=== PATIENT | male | born 1995 | race Caucasian/White ===

== ENCOUNTER 2020-11-02 08:55 | Emergency (ER) | payer BC ==
--- NOTE | 2020-11-02 09:33 | EDM.PDOC ---
ED HPI GENERAL MEDICAL PROBLEM - General Chief Complaint: General Stated Complaint: ? dehydration Time Seen by Provider: 11/02/20 09:15 Source of Information: Reports: Patient History Limitations: Reports: No Limitations - History of Present Illness INITIAL COMMENTS - FREE TEXT/NARRATIVE: Patient is presented to the Ed by his significant other with concern for possible heat stroke or seizure last night. 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 he was feeling ok, had some chips and was near the end of the shift and according to co workers became altered. He was more somnolent, slight irritable. He denies remembering anything from working the line to when he was dropped off at home. according to the co workers, he " zoned out" and was irritable so they drove him home. Patient states that his usual seizure is a " check out with talking strange" and he does not remember the episodes. AFter he was dropped off last night he felt tired but otherwise well. He slept all night. Overslept his 5 am alarm to take his seizure meds but took them at 6:30. He went back to sleep. Later when he talked to his significant other, they decided to come in to check labs with concern for heat stroke last night or a seizure. Last saw his neurologist several months ago, levels were done and normal. Today he feels fine, is eating and drinking well, no fevers or illness, no trauma Onset: Sudden Onset Date: 11/01/20 Duration: Resolved Prior to Arrival - Related Data Allergies Allergy/AdvReac Type Severity Reaction Status Date / Time No Known Allergies Allergy Verified 11/02/20 09:14 Home Meds: Home Meds Felbamate 400 mg PO TID 11/02/20 [History] Phenytoin 300 mg PO DAILY 11/02/20 [History] lamoTRIgine 100 mg PO TID 11/02/20 [History] Past Medical History HEENT History: Reports: Impaired Vision Neurological History: Reports: Seizure - Past Surgical History HEENT Surgical History: Reports: Oral Surgery Social & Family History - Tobacco Use Tobacco Use Status *Q: Never Tobacco User - Alcohol Use Alcohol Use History: No Alcohol Use in Last Twelve Months: No - Recreational Drug Use Recreational Drug Use: No Drug Use in Last 12 Months: No ED ROS GENERAL - Review of Systems Review Of Systems: See Below Constitutional: Reports: Fatigue (last night, better now) HEENT: Reports: No Symptoms. Denies: Rhinitis, Throat Pain, Throat Swelling Respiratory: Reports: No Symptoms. Denies: Shortness of Breath, Wheezing Cardiovascular: Reports: No Symptoms. Denies: Chest Pain, Blood Pressure Problem Endocrine: Reports: No Symptoms. Denies: Fatigue GI/Abdominal: Reports: No Symptoms. Denies: Abdominal Pain, Nausea, Vomiting : Reports: No Symptoms. Denies: Pain, Urinary Retention Musculoskeletal: Reports: No Symptoms Skin: Reports: No Symptoms Neurological: Reports: No Symptoms. Denies: Difficulty Walking, Change in Speech, Gait Disturbance Psychiatric: Reports: No Symptoms Hematologic/Lymphatic: Reports: No Symptoms ED EXAM, GENERAL - Physical Exam Exam: See Below Exam Limited By: Other (struggles a bit with the history but able to provide it adequately, displays capacity) General Appearance: Alert, WD/WN, No Apparent Distress Eye Exam: Bilateral Eye: EOMI, Normal Inspection, Nystagmus (unsure of baseline, not rotary), PERRL Ear Exam: Bilateral Ear: Canal Normal, TM normal Nose: Normal Inspection, Normal Mucosa Throat/Mouth: Normal Inspection, Normal Lips, Normal Voice Head: Atraumatic, Normocephalic Neck: Supple, Non-Tender Respiratory/Chest: No Respiratory Distress, Lungs Clear, Normal Breath Sounds, No Accessory Muscle Use, Chest Non-Tender Cardiovascular: Normal Peripheral Pulses, Regular Rate, Rhythm GI/Abdominal: Normal Bowel Sounds, Soft, Non-Tender, No Abnormal Bruit Back Exam: Normal Inspection, Full Range of Motion. No: CVA Tenderness (L), CVA Tenderness (R) Extremities: Normal Inspection, Normal Range of Motion, Normal Capillary Refill Neurological: Alert, Oriented, CN II-XII Intact, Normal Cognition, Normal Gait (normal finger to nose with eyes closed, normal codey, normal heel to macias, negative pronator drift. normal strength in the lower extremities, normal exercise physiologist certified in the upper extremities), No Motor/Sensory Deficits Course - Vital Signs Last Recorded V/S: Last Vital Signs Temp 36.9 C 11/02/20 09:00 Pulse 93 11/02/20 09:00 Resp 16 11/02/20 09:00 BP 163/85 H 11/02/20 09:00 Pulse Ox 100 11/02/20 09:00 - Orders/Labs/Meds Orders: Active Orders 24 hr Category Date Time Status LEVETIRACETAM, S [REF] Stat Lab 11/02/20 09:37 Received PHENYTOIN [REF] Stat Lab 11/02/20 09:37 Received Labs: Laboratory Tests 11/02/20 11/02/20 11/02/20 Range/Units 09:30 09:37 09:37 WBC 8.1 (4.0-10.2) K/uL RBC 5.15 (4.33-5.41) M/uL Hgb 16.9 H (13.1-16.8) g/dL Hct 47.8 (39.0-49.0) % MCV 92.8 (84.0-98.0) fL MCH 32.8 (28.2-33.3) pg MCHC 35.4 (31.7-36.0) g/dL RDW 13.6 (11.2-14.1) % Plt Count 341 (150-350) K/uL Neut % (Auto) 56.5 (45.0-80.0) % Lymph % (Auto) 31.5 (10.0-50.0) % [place] % (Auto) 10.3 (2.0-14.0) % Eos % (Auto) 1.2 (0.0-5.0) % Baso % (Auto) 0.5 (0.0-2.0) % Neut # (Auto) 4.55 (1.40-7.00) K/uL Lymph # (Auto) 2.54 (0.50-3.50) K/uL O[place]o # (Auto) 0.83 (0.00-1.00) K/uL Eos # (Auto) 0.10 (0.00-0.50) K/uL Baso # (Auto) 0.04 (0.00-0.20) K/uL Sodium 141 (136-145) mmol/L Potassium 3.5 (3.5-5.1) mmol/L Chloride 103 (98-107) mmol/L Carbon Dioxide 30.3 (21.0-32.0) mmol/L Anion Gap 7.7 (7-15) meq/L BUN 7 (7-18) mg/dL Creatinine 0.88 (0.51-1.17) mg/dL Est Cr Clr Drug Dosing 131.34 mL/min Estimated GFR (MDRD) > 60 mL/min Glucose 110 H (70-99) mg/dL Calcium 8.7 (8.5-10.1) mg/dL Total Bilirubin 0.6 (0.2-1.0) mg/dL AST 19 (15-37) U/L ALT 42 (12-78) U/L Alkaline Phosphatase 139 H (46-116) IU/L Total Protein 8.2 (6.4-8.2) g/dL Albumin 4.6 (3.4-5.0) g/dL Specimen Type Urincc Urine Color Yellow Urine Appearance Clear Urine pH 8.5 (5.0-9.0) Ur Specific [place] 1.020 (1.005-1.030) Urine Protein 30 H (NEGATIVE) mg/dL Urine Glucose (UA) Negative (NEGATIVE) mg/dL Urine Ketones Negative (NEGATIVE) mg/dL Urine Occult Blood Negative (NEGATIVE) Urine Nitrite Negative (NEGATIVE) Urine Bilirubin Negative (NEGATIVE) Urine Urobilinogen 0.2 (0.2-1.0) E.U./dL Ur Leukocyte Esterase Negative (NEGATIVE) Urine RBC 0-5 /HPF Urine WBC 0-5 /HPF Ur Epithelial Cells Rare /LPF Urine Bacteria Rare (NONE TO FEW) /HPF - Re-Assessments/Exams Free Text/Narrative Re-Assessment/Exam: 11/02/20 09:59 will check labs, and send out a keppra and phenytoin level. Appears well today. 11/02/20 10:49 las and urine normal. Will follow up with neurology Departure - Departure Time of Disposition: 10:52 Disposition: Home, Self-Care 01 Clinical Impression: Seizures - Discharge Information *PRESCRIPTION DRUG MONITORING PROGRAM REVIEWED*: Not Applicable *COPY OF PRESCRIPTION DRUG MONITORING REPORT IN PATIENT CUATE: Not Applicable Instructions: Seizure, Adult, [id number] Referrals: Dolores Trivedi MD [Primary Care Provider] - Forms: ED Department Discharge Additional Instructions: Testing today did not reveal any abnormalities in labs. Try to keep on your sleep schedule, take your medications on time, and stay hydrated. Follow up with neurology for send out seizure medication levels Sepsis Event Note (ED) - Focused Exam Vital Signs: Vital Signs Temp Pulse Resp BP Pulse Ox 11/02/20 09:00 36.9 C 93 16 163/85 H 100 - My Orders Last 24 Hours: My Active Orders 11/02/20 09:37 LEVETIRACETAM, S [REF] Stat PHENYTOIN [REF] Stat - Assessment/Plan Last 24 Hours: My Active Orders 11/02/20 09:37 LEVETIRACETAM, S [REF] Stat PHENYTOIN [REF] Stat
[2020-11-02 10:02] LABS: ANION GAP 7.7 meq/L (7-15); CHLORIDE,CL 103 mmol/L (98-107); SODIUM,NA 141 mmol/L (136-145)
== END 2020-11-02 11:10 | disposition home or self-care (01) ==
LOC: LL.ED 08:55
DX: R56.9 Unspecified convulsions (principal)
CPT/HCPCS: 36415; 80053; 80177; 80185; 81001; 85025; 99284

== ENCOUNTER 2021-02-07 20:29 | Emergency (ER) | payer BC ==
[2021-02-07] MEDS ORDERED: Sodium Chloride 0.9% 10 ML Syringe FLUSH PRN (20:40)
[2021-02-07 21:01] LABS: BARBITURATE SCREEN,URINE NEGATIVE (NEGATIVE); BENZODIAZEPINES SCREEN,URINE NEGATIVE (NEGATIVE); EDDP,URINE SCREEN NEGATIVE (NEGATIVE); TCA SCREEN,URINE NEGATIVE (NEGATIVE); THC SCREEN,URINE 50 NG/ML NEGATIVE (NEGATIVE)
[2021-02-07 21:02] LABS: BUPRENORPHINE SCREEN,URINE NEGATIVE (NEGATIVE)
[2021-02-07 21:06] LABS: ANION GAP 9.9 meq/L (7-15); CHLORIDE,CL 103 mmol/L (98-107); SODIUM,NA 140 mmol/L (136-145)
--- NOTE | 2021-02-07 21:07 | EDM.PDOC ---
ED HPI GENERAL MEDICAL PROBLEM - General Chief Complaint: Neurological Problem Stated Complaint: post-ictal Time Seen by Provider: 02/07/21 20:45 Source of Information: Reports: Patient History Limitations: Reports: No Limitations - History of Present Illness Onset: Today Onset Date: 02/07/21 Duration: Hour(s):, Resolved Prior to Arrival Severity: Moderate Improves with: Reports: Other (time) Worsens with: Reports: None Associated Symptoms: Reports: Other (mild post ictal mental clouding) - Related Data Allergies Allergy/AdvReac Type Severity Reaction Status Date / Time No Known Allergies Allergy Verified 02/07/21 20:57 Home Meds: Home Meds Felbamate 400 mg PO TID 11/02/20 [History] Phenytoin 100 mg PO TID 11/02/20 [History] lamoTRIgine 400 mg PO DAILY@07 11/02/20 [History] lamoTRIgine [Lamotrigine] 400 mg PO DAILY@2300 02/07/21 [History] lamoTRIgine [Lamotrigine] 500 mg PO DAILY@15 02/07/21 [History] Past Medical History HEENT History: Reports: Impaired Vision Neurological History: Reports: Seizure - Past Surgical History HEENT Surgical History: Reports: Oral Surgery Social & Family History - Family History Family Medical History: No Pertinent Family History - Alcohol Use Alcohol Use History: Yes Alcohol Use in Last Twelve Months: Yes Alcohol Use Frequency: Socially Alcohol Use Comment: last use was prior to 01/27/21 breakthrough seizure - Recreational Drug Use Recreational Drug Use: No Drug Use in Last 12 Months: No - Sexual History Sexual History: Reports: Sexually Active, Single Partner ED ROS GENERAL - Review of Systems Review Of Systems: See Below Constitutional: Reports: No Symptoms HEENT: Reports: No Symptoms Respiratory: Reports: No Symptoms, Cough. Denies: Shortness of Breath, Wheezing, Hemoptysis Cardiovascular: Reports: No Symptoms Endocrine: Reports: No Symptoms GI/Abdominal: Reports: No Symptoms : Reports: No Symptoms Musculoskeletal: Reports: No Symptoms Skin: Reports: No Symptoms Neurological: Reports: No Symptoms Psychiatric: Reports: No Symptoms Hematologic/Lymphatic: Reports: No Symptoms Immunologic: Reports: No Symptoms - Physical Exam Exam: See Below Exam Limited By: No Limitations General Appearance: Alert, WD/WN, No Apparent Distress Eye Exam: Bilateral Eye: EOMI, Normal Inspection, PERRL Ears: Normal External Exam Nose: Normal Inspection Head Exam: Atraumatic, Normocephalic. No: Scalp Lacerations, Scalp Abrasions, Facial Abrasions, Facial Lacerations Neck: Normal Inspection, Supple, Full Range of Motion Respiratory/Chest: No Respiratory Distress, Lungs Clear, Normal Breath Sounds, No Accessory Muscle Use. No: Rales, Rhonchi, Wheezing, Stridor Cardiovascular: Normal Peripheral Pulses, Regular Rate, Rhythm, No Edema, No Gallop, No Murmur, No Rub GI/Abdominal: Soft, Non-Tender Neuro Exam (Abbreviated): Alert, Oriented, Normal Cognition, Normal Gait, No Motor/Sensory Deficits. No: Slow to Respond, Memory Loss Remote Events Back Exam: Full Range of Motion Extremities: Normal Inspection, Normal Range of Motion Psychiatric: Normal Affect, Normal Mood Skin Exam: Warm, Dry Course - Vital Signs Text/Narrative:: presented to the ED after breakthrough seizure while at work. He has had a viral URI recently and has been taking large amounts of OTC cold medicine. His seizure disorder is currently poorly controlled with his last breakthrough seizure on 01/27/21 (which he thinks was provoked by drinking multiple alcoholic beverages the night prior. He has been following with [facility] neurology (Dr. Trivedi). He takes his anti seizure medication regularly. He never misses doses. He sleeps at least 6-8 hours nightly. He has no other known triggers. Upon arrival to the ED he was seizure free. reports from bystander of approximately 10 minutes of seizure activity followed by mild post ictal phase. While in the ED he had complete mental clarity with no post ictal confusion noted and no seizure activity noted. physical exam was negative for acute findings. no tongue laceration, bodily injury or areas of ecchymosis noted. Labs ordered and all are WNL. pt remained asymptomatic and hemodynamically stable so was discharged home. Last Recorded V/S: Last Vital Signs Temp 99.0 F 02/07/21 20:30 Pulse 106 H 02/07/21 20:30 Resp 18 02/07/21 20:30 BP 163/91 H 02/07/21 20:30 Pulse Ox 99 02/07/21 20:30 - Orders/Labs/Meds Orders: Active Orders 24 hr Category Date Time Status Assess LOC and Orientation [RC] Q1H Care 02/07/21 20:39 Active Blood Glucose Check, Bedside [RC] ONETIME Care 02/07/21 20:35 Active Peripheral IV Care [RC] . DIRECTED Care 02/07/21 20:41 Active Up With Assistance [RC] ASDIRECTED Care 02/07/21 20:35 Active Vital Signs [RC] We@0800 Care 02/07/21 20:35 Active Nothing per Oral Now Diet [DIET] Diet 02/07/21 Dinner Active Sodium Chloride 0.9% [Saline Flush] Med 02/07/21 20:40 Active 10 ml FLUSH ASDIRECTED PRN Peripheral IV Insertion Adult [OM.PC] Stat Oth 02/07/21 20:40 Ordered Medication Orders Sodium Chloride (Sodium Chloride 0.9% 10 Ml Syringe) 10 ml FLUSH ASDIRECTED PRN PRN Reason: Keep Vein Open Labs: Laboratory Tests 02/07/21 02/07/21 02/07/21 Range/Units 20:40 20:45 20:45 WBC 11.8 H (4.0-10.2) K/uL RBC 4.62 (4.33-5.41) M/uL Hgb 15.1 (13.1-16.8) g/dL Hct 43.7 (39.0-49.0) % MCV 94.6 (84.0-98.0) fL MCH 32.7 (28.2-33.3) pg MCHC 34.6 (31.7-36.0) g/dL RDW 13.2 (11.2-14.1) % Plt Count 326 (150-350) K/uL MPV 8.70 (7.00-11.50) fL Sodium 140 (136-145) mmol/L Potassium 3.7 (3.5-5.1) mmol/L Chloride 103 (98-107) mmol/L Carbon Dioxide 27.1 (21.0-32.0) mmol/L Anion Gap 9.9 (7-15) meq/L BUN 12 (7-18) mg/dL Creatinine 0.82 (0.51-1.17) mg/dL Est Cr Clr Drug Dosing TNP Estimated GFR (MDRD) > 60 mL/min Glucose 135 H (70-99) mg/dL POC Glucose 120 H (70-99) mg/dL Lactic Acid (0.4-2.0) mmol/L Calcium 8.7 (8.5-10.1) mg/dL Magnesium 1.8 (1.8-2.4) mg/dL Total Bilirubin 0.2 (0.2-1.0) mg/dL AST 17 (15-37) U/L ALT 35 (12-78) U/L Alkaline Phosphatase 120 H (46-116) IU/L Creatine Kinase 93 (26-308) U/L Total Protein 7.6 (6.4-8.2) g/dL Albumin 3.9 (3.4-5.0) g/dL Urine Opiates Screen (NEGATIVE) Ur Buprenorphine Scrn (NEGATIVE) Ur Oxycodone Screen (NEGATIVE) Ur EDDP (Meth Metab) (NEGATIVE) Ur Barbiturates Screen (NEGATIVE) Ur Tricyclics Screen (NEGATIVE) Ur Amphetamine Screen (NEGATIVE) U Methamphetamines Scrn (NEGATIVE) Urine MDMA Screen (NEGATIVE) U Benzodiazepines Scrn (NEGATIVE) U Cocaine Metab Screen (NEGATIVE) U Marijuana (THC) Screen (NEGATIVE) Ethyl Alcohol 0.000 (0.000-0.080) g/dL 02/07/21 02/07/21 Range/Units 20:45 20:47 WBC (4.0-10.2) K/uL RBC (4.33-5.41) M/uL Hgb (13.1-16.8) g/dL Hct (39.0-49.0) % MCV (84.0-98.0) fL MCH (28.2-33.3) pg MCHC (31.7-36.0) g/dL RDW (11.2-14.1) % Plt Count (150-350) K/uL MPV (7.00-11.50) fL Sodium (136-145) mmol/L Potassium (3.5-5.1) mmol/L Chloride (98-107) mmol/L Carbon Dioxide (21.0-32.0) mmol/L Anion Gap (7-15) meq/L BUN (7-18) mg/dL Creatinine (0.51-1.17) mg/dL Est Cr Clr Drug Dosing Estimated GFR (MDRD) mL/min Glucose (70-99) mg/dL POC Glucose (70-99) mg/dL Lactic Acid 0.8 (0.4-2.0) mmol/L Calcium (8.5-10.1) mg/dL Magnesium (1.8-2.4) mg/dL Total Bilirubin (0.2-1.0) mg/dL AST (15-37) U/L ALT (12-78) U/L Alkaline Phosphatase (46-116) IU/L Creatine Kinase (26-308) U/L Total Protein (6.4-8.2) g/dL Albumin (3.4-5.0) g/dL Urine Opiates Screen Negative (NEGATIVE) Ur Buprenorphine Scrn Negative (NEGATIVE) Ur Oxycodone Screen Negative (NEGATIVE) Ur EDDP (Meth Metab) Negative (NEGATIVE) Ur Barbiturates Screen Negative (NEGATIVE) Ur Tricyclics Screen Negative (NEGATIVE) Ur Amphetamine Screen Negative (NEGATIVE) U Methamphetamines Scrn Negative (NEGATIVE) Urine MDMA Screen Negative (NEGATIVE) U Benzodiazepines Scrn Negative (NEGATIVE) U Cocaine Metab Screen Negative (NEGATIVE) U Marijuana (THC) Screen Negative (NEGATIVE) Ethyl Alcohol (0.000-0.080) g/dL Meds: Medications Generic Name Dose Route Start Last Admin Trade Name Freq PRN Reason Stop Dose Admin Sodium Chloride 10 ml 02/07/21 20:40 Sodium Chloride 0.9% 10 Ml Syringe FLUSH ASDIRECTED PRN Keep Vein Open Departure - Departure Time of Disposition: 21:42 Disposition: Home, Self-Care 01 Condition: Good Clinical Impression: Breakthrough seizure, Seizure disorder - Discharge Information *PRESCRIPTION DRUG MONITORING PROGRAM REVIEWED*: Not Applicable *COPY OF PRESCRIPTION DRUG MONITORING REPORT IN PATIENT CUATE: Not Applicable Instructions: Seizure, Adult, [id number] Referrals: Raissa Amaral NP [Primary Care Provider] - Forms: ED Department Discharge Additional Instructions: refer to [facility] for a list of medications that lower seizure threshold. Sepsis Event Note (ED) - Evaluation Sepsis Screening Result: No Definite Risk - Focused Exam Vital Signs: Vital Signs Temp Pulse Resp BP Pulse Ox 02/07/21 20:30 99.0 F 106 H 18 163/91 H 99 - Problem List Review Problem List Initiated/Reviewed/Updated: Yes - My Orders Last 24 Hours: My Active Orders 02/07/21 Dinner Nothing per Oral Now Diet [DIET] 02/07/21 20:35 Blood Glucose Check, Bedside [RC] ONETIME Up With Assistance [RC] ASDIRECTED Vital Signs [RC] We@0800 02/07/21 20:39 Assess LOC and Orientation [RC] Q1H 02/07/21 20:40 Sodium Chloride 0.9% [Saline Flush] 10 ml FLUSH ASDIRECTED PRN Peripheral IV Insertion Adult [OM.PC] Stat 02/07/21 20:41 Peripheral IV Care [RC] . DIRECTED - Assessment/Plan Last 24 Hours: My Active Orders 02/07/21 Dinner Nothing per Oral Now Diet [DIET] 02/07/21 20:35 Blood Glucose Check, Bedside [RC] ONETIME Up With Assistance [RC] ASDIRECTED Vital Signs [RC] We@0800 02/07/21 20:39 Assess LOC and Orientation [RC] Q1H 02/07/21 20:40 Sodium Chloride 0.9% [Saline Flush] 10 ml FLUSH ASDIRECTED PRN Peripheral IV Insertion Adult [OM.PC] Stat 02/07/21 20:41 Peripheral IV Care [RC] . DIRECTED Assessment:: see below Plan: Hx of seizure disorder Breakthrough seizure - breakthrough seizure likely secondary to OTC cold medications and acute illness. previous breakthrough seizure likely secondary to alcohol ingestion. Plan: - continue home seizure medications - follow up with primary neurology team as soon as they are available - no driving for one year.
== END 2021-02-07 22:00 | disposition home or self-care (01) ==
LOC: LL.ED 20:29
DX: G40.909 Epilepsy, unspecified, not intractable, without status epilepticus (principal)
CPT/HCPCS: 36415; 80053; 80305-QW; 80307; 82550; 82947; 83605; 83735; 85027; 99284

== ENCOUNTER 2021-06-06 15:47 | Emergency (ER) | payer BC ==
[2021-06-06 16:08] VITALS: PULSE 100
[2021-06-06 18:20] VITALS: BP 149/82
== END 2021-06-06 17:07 | disposition home or self-care (01) ==
LOC: LL.ED 15:47
DX: G40.909 Epilepsy, unspecified, not intractable, without status epilepticus (principal); Z79.899 Other long term (current) drug therapy
CPT/HCPCS: 36415; 80167; 80175; 80183; 99284